=== PATIENT | female | born 1980 | race Caucasian/White ===

== ENCOUNTER → 2017-10-26 | Outpatient (CLI) | payer OTHER | LOC: CFH 13:27 | PROVIDERS: ATTEND Internal Medicine | DX: N63.21 Unspecified lump in the left breast, upper outer quadrant (principal) | CPT/HCPCS: 77066 ==

== ENCOUNTER 2020-05-25 20:54 | Emergency (ER) | payer OTHER ==
[~2020-05-25] VITALS: Ht 149.9 cm; Wt 89.4 kg
[2020-05-25 22:20] LABS: BASOPHILS % (AUTO) 1 % (0-1); EOSINOPHILS % (AUTO) 1 % (1-7); LYMPHOCYTES % (AUTO) 30 % (22-44); MEAN CORPUSCULAR HEMOGLOBIN 30.1 pg (27.0-34.8); MEAN CORPUSCULAR HGB CONC 34.2 g/dL (32.4-35.8); MONOCYTES % (AUTO) 9 % (2-9); NEUTROPHILS % (AUTO) 60 % (42-75); PLATELET COUNT 238 x10^3/uL (130-400); RED BLOOD COUNT 5.06 x10^6/uL (3.82-5.3); RED CELL DISTRIBUTION WIDTH 14.3 % (9.6-15.2)
[2020-05-25 22:24] LABS: MD NO
[2020-05-25 22:29] LABS: ALBUMIN 4.2 g/dL (3.4-5.0); ANION GAP 7 mmol/L (5-15); CALCIUM 8.8 mg/dL (8.5-10.1); CHLORIDE 114 mmol/L (98-107); CREATININE 0.75 mg/dL (0.55-1.02)
--- NOTE | 2020-05-25 23:18 | NUR ---
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 STEADY UPON AMBULATION.
[2020-05-26 00:33] VITALS: BP 124/61
[2020-05-26 00:40] LABS: MICROSCOPIC INDICATED
== END 2020-05-26 00:45 | disposition home or self-care (01) ==
LOC: ED 05-26 00:17
DX: N92.4 Excessive bleeding in the premenopausal period (principal); N93.8 Other specified abnormal uterine and vaginal bleeding; U07.1 COVID-19
CPT/HCPCS: 36415; 76830; 80048; 81001; 82040; 84703; 85025; 87086; 99284

== ENCOUNTER → 2020-09-03 | Outpatient (CLI) | payer OTHER | END | disposition home or self-care (01) | LOC: CFH 08:00 | PROVIDERS: ATTEND Obstetrics & Gynecology Female Pelvic Medicine and Reconstructive Surgery | DX: N60.02 Solitary cyst of left breast (principal) | CPT/HCPCS: 76642; 77065 ==

== ENCOUNTER 2021-02-26 09:48 | Emergency (ER) | payer OTHER ==
[~2021-02-26] VITALS: Ht 149.9 cm; Wt 84.1 kg
--- NOTE | 2021-02-26 10:10 | NUR ---
PT BIB [facility]. PT STATES SHE HAS BEEN DX RECENTLY WITH ENDOMETRIOSIS AND IS SOON TO BE SCHEDULED FOR A HYSTERECTOMY. PT STATES SHE HAS BEEN HAVING HEAVY BLEEDING FOR A WEEEK BUT IT INCREASED TODAY AND SOAKED THROUGH A PAD AND HER PANTS. PT STATES SHE ALSO HAS CLOTS. PT ABD PAIN 4/10, DESCRIBED CRAMPING IN HER LOWER ABD. PT DENIES N/V, SOB, OR DIARRHEA.
[2021-02-26] MEDS ORDERED: HYDROcodone/APAP 5/325 TABLET ONE (10:21)
[2021-02-26] MEDS ORDERED: HYDROcodone/APAP 5/325 TABLET PO PRN (10:30)
[2021-02-26 11:00] LABS: ALBUMIN 3.9 g/dL (3.4-5.0); ANION GAP 7 mmol/L (5-15); CALCIUM 8.4 mg/dL (8.5-10.1); CHLORIDE 115 mmol/L (98-107)
[2021-02-26 11:06] LABS: BASOPHILS % (AUTO) 1 % (0-1); EOSINOPHILS % (AUTO) 2 % (1-7); LYMPHOCYTES % (AUTO) 28 % (22-44); MEAN CORPUSCULAR HEMOGLOBIN 30.1 pg (27.0-34.8); MEAN CORPUSCULAR HGB CONC 33.5 g/dL (32.4-35.8); MONOCYTES % (AUTO) 9 % (2-9); NEUTROPHILS % (AUTO) 60 % (42-75); PLATELET COUNT 285 x10^3/uL (130-400); RED BLOOD COUNT 4.64 x10^6/uL (3.82-5.3); RED CELL DISTRIBUTION WIDTH 13.9 % (9.6-15.2)
[2021-02-26 11:08] LABS: ALANINE AMINOTRANSFERASE 20 U/L (12-78); ALKALINE PHOSPHATASE 71 U/L (45-117); BILIRUBIN,TOTAL 0.3 mg/dL (0.2-1.0); TOTAL PROTEIN 7.3 g/dL (6.4-8.2)
[2021-02-26 13:48] VITALS: BP 122/54
== END 2021-02-26 13:49 | disposition home or self-care (01) ==
LOC: ED 10:47
DX: N92.0 Excessive and frequent menstruation with regular cycle (principal); N92.1 Excessive and frequent menstruation with irregular cycle
CPT/HCPCS: 36415; 76830; 80053; 84703; 85025; 99284

== ENCOUNTER 2021-03-04 10:49 | Day surgery (SDC) | payer OTHER ==
[~2021-03-04] VITALS: Ht 149.9 cm; Wt 83.7 kg
[2021-03-04 11:24] VITALS: BP 119/82
[2021-03-04] MEDS ORDERED: HYDROmorphone 1 MG/ML, 1ML INJ IVPush PRN (11:30)
[2021-03-04] MEDS ORDERED: ONDANSETRON 2MG/ML, 2ML IVPush PRN ×2 (11:30→15:00)
[2021-03-04] MEDS ORDERED: LACTATED RINGERS 1,000 ML IV SCH ×2 (11:30→15:00)
[2021-03-04] MEDS ORDERED: MEPERIDINE/PF 25MG/0.5ML IVPush PRN (11:30)
[2021-03-04] MEDS ORDERED: CHLORHEXIDINE 15 ML UDC PO ONE (11:30)
[2021-03-04] MEDS ORDERED: PLEASE ENTER HEIGHT AND WEIGHT MC SCH (11:30)
[2021-03-04] MEDS ORDERED: HYDROcodone/APAP 7.5-325MG/15ML UDC PO PRN (11:30)
[2021-03-04] MEDS ORDERED: PROMETHAZINE 25 MG/ML, 1ML IVPush PRN (11:30)
[2021-03-04] MEDS ORDERED: CHLORHEXIDINE 15 ML UDC ONE (11:39)
[2021-03-04 11:47] LABS: HCG UR SG 1.027 (1.003-1.030)
[2021-03-04] MEDS ORDERED: MIDAZOLAM 1 MG/ML, 2ML ONE (12:07)
[2021-03-04] MEDS ORDERED: FENTANYL PF 100 MCG/2ML ONE ×3 (12:07→14:26)
[2021-03-04] MEDS ORDERED: BUPIVACAINE/PF 0.25% ONE (12:10)
[2021-03-04] MEDS ORDERED: FLUORESCEIN SODIUM 500 MG/5 ML ONE (12:10)
[2021-03-04] MEDS ORDERED: NEOSTIGMINE 1 MG/ML, 10ML ONE (13:36)
[2021-03-04] MEDS ORDERED: PROPOFOL 10 MG/ML, 20ML ONE (13:36)
[2021-03-04] MEDS ORDERED: ROCURONIUM 10MG/ML,5ML ONE (13:36)
[2021-03-04] MEDS ORDERED: CEFAZOLIN 1,000 MG ONE (13:36)
[2021-03-04] MEDS ORDERED: ONDANSETRON 2MG/ML, 2ML ONE (13:36)
[2021-03-04] MEDS ORDERED: SUCCINYLCHOLINE 20 MG/ML, 10ML ONE (13:36)
[2021-03-04] MEDS ORDERED: GLYCOPYRROLATE 0.2MG/1ML, 5ML ONE (13:36)
[2021-03-04] MEDS ORDERED: DEXAMETHASONE 4 MG/ML, 1ML ONE (13:36)
[2021-03-04] MEDS ORDERED: MEPERIDINE/PF 25MG/ML,1ML ONE (14:26)
[2021-03-04] MEDS ORDERED: OXYcodone 5 MG/5 ML ORAL.SOL UDC ONE ×2 (14:26→15:02)
[2021-03-04] MEDS: OXYcodone 5 MG/5 ML ORAL.SOL UDC PO PRN ×2 (14:30→15:05)
[2021-03-04] MEDS: FENTANYL PF 100 MCG/2ML IV PRN ×2 (14:33→15:05)
[2021-03-04] MEDS ORDERED: PROMETHAZINE 25 MG SUPP PR ONE (15:00)
[2021-03-04] MEDS ORDERED: IBUPROFEN 600 MG TABLET PO PRN (15:00)
[2021-03-04] MEDS ORDERED: HYDROcodone/APAP 5/325 TABLET PO PRN (15:00)
[2021-03-04] MEDS ORDERED: HYDROmorphone 2 MG/ML, 1ML ONE (16:41)
[2021-03-04] MEDS ORDERED: HYDROcodone/APAP 7.5-325MG/15ML UDC ONE (19:40)
== END 2021-03-04 21:00 | disposition home or self-care (01) ==
LOC: OUT 10:49
PROVIDERS: ATTEND Obstetrics & Gynecology Female Pelvic Medicine and Reconstructive Surgery
DX: N93.9 Abnormal uterine and vaginal bleeding, unspecified (principal); D25.0 Submucous leiomyoma of uterus; N80.0 Endometriosis of uterus; N83.202 Unspecified ovarian cyst, left side; N72 Inflammatory disease of cervix uteri; N83.8 Other noninflammatory disorders of ovary, fallopian tube and broad ligament; N88.8 Other specified noninflammatory disorders of cervix uteri; E66.9 Obesity, unspecified; Z20.822 Contact with and (suspected) exposure to COVID-19; Z79.899 Other long term (current) drug therapy; Z91.040 Latex allergy status
CPT/HCPCS: 58552; 81025; 87635; 88307; J0330; J0690; J1100; J1170; J2175; J2250; J2405; J2704; J2710; J3010; J7120; S2900